=== PATIENT | male | born 1960 | race Caucasian/White ===

== ENCOUNTER 2019-10-05 16:01 | Emergency (ER) | payer SELFPAY ==
[~2019-10-05 16:01] MED LIST: Iopamidol-370 76% 500 ML 1 ML ONE
[2019-10-05] MEDS ORDERED: Ondansetron PF 4 MG/2 ML Vial ONE (16:16)
[2019-10-05] MEDS ORDERED: Ketorolac Tromethamine 30 MG/ML VIAL ONE (16:16)
[2019-10-05] MEDS ORDERED: Fentanyl 100 MCG/2 ML VIAL ONE (16:27)
[2019-10-05 16:45] LABS: #Basophils 0.1 thou/uL (0.0-0.2); #Eosinphils 0.3 thou/uL (0.0-0.7); #Lymphocytes 2.6 thou/uL (1.20-3.40); #Monocytes 0.7 thou/uL (0.11-0.59); #Neutrophils 3.5 thou/uL (1.40-6.50); %Basophils 1.1 % (0.0-1.0); %Eosinophils 3.6 % (0.0-10.0); %Lymphocytes 36.3 % (21.0-51.0); %Monocytes 9.4 % (0.0-10.0); %Neutrophils 49.7 % (42.0-75.0); Hemoglobin 13.2 g/dL (14.0-18.0); Mean Corpuscular HGB CONC 31.9 g/dL (32.0-36.0); Mean Corpuscular Hemoglobin 32.1 pg (27.0-31.0); Mean Platelet Volume 7.4 fL (7.4-10.4); Platelet Count 324 thou/uL (130-400); RBC Distribution Width 12.3 % (11.5-14.5); Red Blood Cell (RBC) Count 4.13 mill/uL (4.70-6.10); White Blood Cell (WBC) Count 7.1 thou/uL (4.8-10.8)
--- NOTE | 2019-10-05 17:01 | CT ---
CT OF THE ABDOMEN AND PELVIS WITH IV CONTRAST INDICATION: Concern for incarcerated inguinal hernia COMPARISON: None FINDINGS: ABDOMEN: Lung bases: Clear Liver: There is prominent heterogeneity of the liver which is nonspecific. There is [id number] intrahepatic biliary ductal dilatation which may be related to patient's postcholecystectomy state. There is a 6.6 mm hypodensity within segment 2 of the left hepatic lobe on image 11 of series 2. Stefano tional smaller 5 mm hypodensity is seen within segment 7 of the right hepatic lobe on image 22 of series 2. Gallbladder: Surgically absent Pancreas: There is mild prominence of the main pancreatic duct without focal pancreatic lesion. Adrenal glands: Normal. Spleen: There are multiple small splenules within the left upper quadrant abdomen. Kidneys and ureters: There is a 3.9 cm cyst involving the right mid kidney. Vasculature: There are mild vascular calcifications seen involving the visualized vasculature. Lymph nodes:No lymphadenopathy. Free fluid in abdomen:No free fluid is evident. PELVIS: Small and large bowel: There are loops of distal ileum within a large right inguinal hernia that exte nds into there is right hemiscrotum without evidence of small bowel obstruction. There is a mild amount of retained stool within the colon. Appendix:Normal Bladder: Normal. Rectal and perirectal soft tissues:Normal. Reproductive structures: Prostate is mildly enlarged measuring 4.5 cm Free fluid in pelvis: No free fluid is evident. Lymphadenopathy pelvis: There are mildly prominent inguinal lymph nodes bilaterally. The largest is s een within the right inguinal region measuring 9 mm. Osseous structures: No acute osseous abnormality. No destructive osteolytic or osteoblastic lesion i s identified. There is scattered degenerative and osteoarthritic changes. Soft tissues:Normal. IMPRESSION: 1. Large right sided inguinal hernia containing unobstructed loops of small bowel. 2. Nonspecific mildly prominent bilateral inguinal lymph nodes. 3. Prominent heterogeneity of the liver may reflect underlying chronic liver disease. There are small hypodensities within the liver that cannot be fully characterize due to their size. Follow-up nonemergent CT the abdomen utilizing a hepatic mass protocol is recommended. 4. Right renal cysts 5. Multiple splenules within the left upper quadrant of the abdomen. 6. Prostate enlargement
[2019-10-05 17:11] LABS: ALT (SGPT) Less than 7 U/L (8-55); AST (SGOT) 16 U/L (5-34); Albumin 3.5 g/dL (3.5-5.0); Alkaline Phosphatase 95 U/L (40-110); Anion Gap 8 mmol/L (10-20); BUN (Urea Nitrogen) 10 mg/dL (8.4-25.7); Bilirubin, Total 0.4 mg/dL (0.2-1.2); Calc. Creatinine Clearance 0 mL/min (70-130); Calcium 7.7 mg/dL (7.8-10.44); Carbon Dioxide 28 mmol/L (22-29); Chloride 105 mmol/L (98-107); Estimated GFR-MDRD Greater than 90; Globulin 2.7 g/dL (2.4-3.5); Glucose 91 mg/dL (70-105); Potassium 3.9 mmol/L (3.5-5.1); Protein, Total 6.2 g/dL (6.0-8.3); Sodium 137 mmol/L (136-145)
[2019-10-05 17:32] LABS: Bilirubin Negative (Negative); Blood, Urine Negative (Negative); Clarity Clear (Clear); Glucose, Urine (Dipstick) Normal (Negative); Leukocyte Negative Leu/uL (Negative); Nitrite Negative (Negative); Protein, Urine (Dipstick) Negative (Neg-Trace); Urobilinogen Normal mg/dL (Less than 2)
== END 2019-10-05 18:10 | disposition home or self-care (01) ==
LOC: ERS 16:01
DX: K40.90 Unilateral inguinal hernia, without obstruction or gangrene, not specified as recurrent (principal); I10 Essential (primary) hypertension; F31.9 Bipolar disorder, unspecified; F17.210 Nicotine dependence, cigarettes, uncomplicated
CPT/HCPCS: 36415; 74177; 81003; 96374; 96375; J1885; J2405; J3010; Q9967

== ENCOUNTER 2020-01-22 06:03 | Day surgery (SDC) | payer OTHER ==
[2020-01-20 15:36] VITALS: BMI 24.2
[2020-01-22] MEDS ORDERED: Bupivacaine/Epinephrine 0.25% 30 ML VIAL ONE (06:39)
[2020-01-22] MEDS ORDERED: Ketorolac Tromethamine 30 MG/ML VIAL ONE (06:50)
[2020-01-22] MEDS ORDERED: Levofloxacin 500 mg/D5W 100 ml Premix Bag ONE (06:50)
[2020-01-22] MEDS ORDERED: Acetaminophen 500 MG TAB ONE (06:50)
[2020-01-22] MEDS ORDERED: SUGAMMADEX SODIUM 200 MG/2 ML VIAL ONE (07:22)
[2020-01-22] MEDS ORDERED: Fentanyl 100 MCG/2 ML VIAL ONE (07:22)
[2020-01-22] MEDS ORDERED: Midazolam HCl 2 mg/2 ml Vial ONE (07:47)
[2020-01-22] MEDS ORDERED: Ondansetron HCl/PF 4 MG/2 ML Vial IVP PRN (08:28)
[2020-01-22] MEDS ORDERED: Promethazine HCl 25 MG/ML VIAL SLOW IVP PRN (08:28)
[2020-01-22] MEDS ORDERED: Promethazine HCl 25 MG/ML VIAL IM PRN (08:28)
[2020-01-22] MEDS ORDERED: Meperidine HCl/PF 25 MG/ML VIAL SLOW IVP PRN (08:28)
[2020-01-22] MEDS ORDERED: Morphine Sulfate 2 MG/ML SYRINGE SLOW IVP PRN (08:28)
[2020-01-22] MEDS ORDERED: Bupivacaine PF 0.5% 30 ML VIAL ONE (08:32)
[2020-01-22] MEDS ORDERED: PROPOFOL 200 MG/20 ML VIAL ONE (08:54)
[2020-01-22] MEDS ORDERED: Lidocaine 1% PF 5 ML VIAL ONE (08:54)
[2020-01-22] MEDS ORDERED: Ondansetron PF 4 MG/2 ML Vial ONE (08:54)
--- NOTE | 2020-01-22 14:09 | PDOC.OP ---
Operative Note - Operative Note Operative Note: DATE OF SERVICE: 01/22/2020 PREOPERATIVE DIAGNOSIS: Right inguinal hernia. POSTOPERATIVE DIAGNOSIS: Right indirect inguinal hernia. PROCEDURE: Repair of right indirect inguinal hernia. HISTORY: 59-year-old man with a symptomatic large but reducible right inguinal hernia who desires operative repair. DESCRIPTION OF PROCEDURE: After informed consent was obtained and appropriate preoperative antibiotics were administered, the patient was taken to the operating room, placed in the supine position and general endotracheal anesthesia was administered. The inguinal area was prepped and draped in the standard sterile fashion and local anesthesia was infused to the skin and subcutaneous tissues overlying the inguinal canal. An oblique skin incision was made in the direction of the skin crease. Dissection was carried down to the external oblique aponeurosis which was carefully incised in the direction of its fibers through the enlarged external ring. The aponeurosis was mobilized off the underlying structures. The ilioinguinal nerve was clearly identified. This was coursing medial to the course of the inguinal cord and was mobilized out of the operative field and carefully avoided for the remainder of the case. The inguinal cord was mobilized at the level of the pubic tubercle. The cremasteric muscles were divided and the cord contents and floor of the canal were carefully examined. An indirect hernia was identified. The hernia sac was dissected free of the cord contents down to the level of the peritoneal reflection. The hernia sac was opened and was empty. The base of the hernia sac was encircled with a pursestring 3-0 Vicryl suture. The pursestring suture was secured and the hernia sac was resected. The base of the hernia sac was tied to the base of the Perfix plug. The Perfix plug was then placed into the internal ring and was tacked down to the internal oblique in a couple of locations. The patch was then secured to the pubic tubercle inferiorly, to the shelving edge of the inguinal ligament laterally, and secured at intervals to the internal oblique medially. A keyhole slit was created and placed around the inguinal cord contents and secured, and the ends secured to each other and to the underlying p lug. The operative site was irrigated and hemostasis verified. Local anesthesia was infused into the muscles of the internal oblique medially. An On-Q pain pump was obtained and tunneled from the operative site to the skin exiting laterally. The tubing was primed and placed into the inguinal canal. The external oblique aponeurosis was then closed with 2-0 Vicryl suture, taking care not to pull up any of the underlying cord contents into the closure, and additional local anesthesia infused into the inguinal canal. The remainder of the local was infused into the subcutaneous tissues circumferentially and to the skin. Alley's fascia was reapproximated with 3-0 Monocryl sutures and the skin was closed with 4-0 subcuticular Monocryl sutures. Dermabond dressings were placed and the On-Q pain pump tubing dressed with Tegaderm. The patient was extubated and taken to the recovery room in good condition. Estimated blood loss was minimal. There were no complications. SPECIMENS: Right inguinal hernia sac.
== END 2020-01-22 12:10 | disposition home or self-care (01) ==
LOC: SDC 06:03
PROVIDERS: ATTEND Surgery
PROC: 0YQ50ZZ Repair Right Inguinal Region, Open Approach (ICD-10-PCS; principal; 2020-01-22)
DX: K40.90 Unilateral inguinal hernia, without obstruction or gangrene, not specified as recurrent (principal); I48.91 Unspecified atrial fibrillation; F31.9 Bipolar disorder, unspecified; F17.200 Nicotine dependence, unspecified, uncomplicated; Z88.0 Allergy status to penicillin
CPT/HCPCS: 88302; A4306; C1781; J1885; J1956; J2250; J2405; J2704; J3010; S0020

== ENCOUNTER 2020-07-31 22:07 | Inpatient (IN) | payer SELFPAY ==
[2020-08-01 00:19] VITALS: BMI 24.9
[2020-08-01] MEDS ORDERED: Ondansetron PF 4 MG/2 ML Vial IVP PRN (00:26)
[2020-08-01] MEDS ORDERED: Acetaminophen 325 MG TAB PO PRN (00:26)
[2020-08-01] MEDS ORDERED: Guaifenesin DM 100-10/5 ML UDCUP PO PRN (00:26)
[2020-08-01] MEDS ORDERED: Sodium Chloride 0.9% 1,000 ML IV SCH (00:45)
[2020-08-01] MEDS: Temazepam 15 MG CAP PO PRN (00:58)
[2020-08-01] MEDS: Nicotine 14 MG PATCH TD SCH (01:06)
[2020-08-01 05:20] LABS: #Basophils 0.1 thou/uL (0.0-0.2); #Eosinphils 0.1 thou/uL (0.0-0.7); #Lymphocytes 2.8 thou/uL (1.20-3.40); #Monocytes 0.7 thou/uL (0.11-0.59); #Neutrophils 4.4 thou/uL (1.40-6.50); %Basophils 1.4 % (0.0-1.0); %Eosinophils 1.7 % (0.0-10.0); %Lymphocytes 33.7 % (21.0-51.0); %Monocytes 8.9 % (0.0-10.0); %Neutrophils 54.2 % (42.0-75.0); Hemoglobin 13.7 g/dL (14.0-18.0); Mean Corpuscular HGB CONC 33.1 g/dL (32.0-36.0); Mean Platelet Volume 8.4 fL (7.4-10.4); Platelet Count 302 thou/uL (130-400); RBC Distribution Width 12.5 % (11.5-14.5); Red Blood Cell (RBC) Count 4.03 mill/uL (4.70-6.10); White Blood Cell (WBC) Count 8.2 thou/uL (4.8-10.8)
[2020-08-01 05:48] LABS: Troponin I 0.033 ng/mL (< 0.028)
[2020-08-01 05:49] LABS: ALT (SGPT) 51 U/L (8-55); AST (SGOT) 50 U/L (5-34); Albumin 3.1 g/dL (3.5-5.0); Alkaline Phosphatase 113 U/L (40-110); Anion Gap 13 mmol/L (10-20); BUN (Urea Nitrogen) 9 mg/dL (8.4-25.7); Bilirubin, Total 1.7 mg/dL (0.2-1.2); Calc. Creatinine Clearance 112 mL/min (70-130); Calcium 7.6 mg/dL (7.8-10.44); Carbon Dioxide 22 mmol/L (22-29); Chloride 107 mmol/L (98-107); Cholesterol 96 mg/dl (< 200 Desired); Globulin 2.9 g/dL (2.4-3.5); Glucose 102 mg/dL (70-105); HDL Cholesterol 32 mg/dL (>60 Neg Risk); LDL Cholesterol, Calculated 52 mg/dL; Potassium 4.6 mmol/L (3.5-5.1); Sodium 137 mmol/L (136-145); Triglycerides 59 mg/dL (Less than 150)
[2020-08-01 08:41] LABS: SARS-CoV-2 PCR by NAA Not Detected (NotDetected)
[2020-08-01] MEDS ORDERED: Aspirin 325 MG TAB PO SCH (08:45)
[2020-08-01] MEDS: Diltiazem 125 MG in Sodium Chloride 0.9% 100 ML IVPB SCH ×2 (09:28→19:38)
[2020-08-01 10:44] LABS: HBCM Index 0.06 S/CO (0-0.79); HBSAg Index 0.16 S/CO (0-0.99); Hep A IgM AB Non-Reactive (NonReactive); Hep A IgM S/CO 0.11 S/CO (0-0.79); Hep B Surf Ag Non-Reactive S/CO (NonReactive); Hep C IgG Ab Non-Reactive (NonReactive); Hep C Index 0.07 S/CO (0-0.79); Hepatitis B Core IgM Abs Non-Reactive (NonReactive); Thyroid Stimulating Hormone 1.8594 uIU/mL (0.35-4.94)
[2020-08-01] MEDS ORDERED: Furosemide 40 MG/4 ML VIAL SLOW IVP SCH (12:00)
[2020-08-01] MEDS: Senokot S 8.6-50 MG TAB PO SCH ×2 (12:21→22:25)
[2020-08-01] MEDS: Famotidine 20 MG TAB PO SCH ×2 (12:21→22:25)
[2020-08-01] MEDS: Polyethylene Glycol 3350 17 GM Packet PO SCH (12:22)
[2020-08-01] MEDS: Enoxaparin Sodium 80 MG/0.8 ML SYRINGE SC SCH ×2 (12:22→22:25)
[2020-08-01] MEDS ORDERED: Furosemide 40 MG TAB PO SCH (14:00)
[2020-08-01] MEDS: Diltiazem HCl SR 60 mg Capsule PO SCH ×2 (15:49→22:26)
[2020-08-01] MEDS: Furosemide 40 MG/4 ML VIAL SLOW IVP SCH (15:49)
[2020-08-01] MEDS: Digoxin 0.25 MG TAB PO SCH ×2 (15:49→22:24)
[2020-08-01] MEDS ORDERED: Communication Order-Pharmacy FS SCH (17:45)
[2020-08-02] MEDS: Nicotine 14 MG PATCH TD SCH (01:28)
[2020-08-02] MEDS: Temazepam 15 MG CAP PO PRN (01:30)
[2020-08-02] MEDS: Digoxin 0.25 MG TAB PO SCH ×2 (04:00→10:47)
[2020-08-02] MEDS: Sodium Chloride 0.9% 1,000 ML IV SCH ×3 (05:05→17:15)
[2020-08-02] MEDS: Diltiazem HCl SR 60 mg Capsule PO SCH ×3 (05:12→21:13)
[2020-08-02] MEDS ORDERED: Iopamidol 370 76% 100 ML VIAL ONE (08:43)
[2020-08-02] MEDS: Diltiazem 125 MG in Sodium Chloride 0.9% 100 ML IVPB SCH (09:20)
[2020-08-02] MEDS ORDERED: Fleet Enema 133 ML BOT PR SCH (09:30)
[2020-08-02] MEDS ORDERED: Carvedilol 6.25 MG TAB PO SCH ×2 (10:00→21:00)
[2020-08-02] MEDS ORDERED: Nitroglycerin 100MG/250ML BOT 250 ML ONE (11:39)
[2020-08-02] MEDS ORDERED: Verapamil 5 MG/2 ML VIAL ONE (11:39)
[2020-08-02] MEDS ORDERED: Adenosine 6 MG/2 ML VIAL ONE (11:39)
[2020-08-02] MEDS ORDERED: Heparin 10,000 UNITS/ 10 ML VIAL ONE (11:46)
[2020-08-02] MEDS ORDERED: Fentanyl 100 MCG/2 ML VIAL ONE (12:42)
[2020-08-02] MEDS ORDERED: Midazolam HCl 2 mg/2 ml Vial ONE (12:42)
[2020-08-02] MEDS: Furosemide 40 MG/4 ML VIAL SLOW IVP SCH ×2 (13:48→14:37)
[2020-08-02] MEDS: Famotidine 20 MG TAB PO SCH ×2 (13:49→21:13)
[2020-08-02] MEDS: Senokot S 8.6-50 MG TAB PO SCH ×2 (13:49→21:13)
[2020-08-02] MEDS: Polyethylene Glycol 3350 17 GM Packet PO SCH (14:37)
[2020-08-03] MEDS: Sodium Chloride 0.9% 1,000 ML IV SCH ×3 (00:57→23:35)
[2020-08-03 05:27] LABS: #Basophils 0.1 thou/uL (0.0-0.2); #Eosinphils 0.3 thou/uL (0.0-0.7); #Lymphocytes 1.7 thou/uL (1.20-3.40); #Monocytes 0.7 thou/uL (0.11-0.59); #Neutrophils 4.7 thou/uL (1.40-6.50); %Basophils 1.5 % (0.0-1.0); %Eosinophils 3.5 % (0.0-10.0); %Lymphocytes 22.4 % (21.0-51.0); %Monocytes 9.7 % (0.0-10.0); %Neutrophils 62.9 % (42.0-75.0); Hemoglobin 15.6 g/dL (14.0-18.0); Mean Corpuscular HGB CONC 34.5 g/dL (32.0-36.0); Mean Platelet Volume 6.4 fL (7.4-10.4); Platelet Count 328 thou/uL (130-400); RBC Distribution Width 12.4 % (11.5-14.5); Red Blood Cell (RBC) Count 4.45 mill/uL (4.70-6.10); White Blood Cell (WBC) Count 7.4 thou/uL (4.8-10.8)
[2020-08-03 05:30] LABS: Anion Gap 12 mmol/L (10-20); BUN (Urea Nitrogen) 8 mg/dL (8.4-25.7); Calc. Creatinine Clearance 138 mL/min (70-130); Calcium 8.2 mg/dL (7.8-10.44); Carbon Dioxide 24 mmol/L (22-29); Chloride 106 mmol/L (98-107); Glucose 90 mg/dL (70-105); Potassium 4.1 mmol/L (3.5-5.1); Sodium 138 mmol/L (136-145)
[2020-08-03] MEDS: Diltiazem HCl SR 60 mg Capsule PO SCH (05:43)
[2020-08-03] MEDS: Furosemide 40 MG/4 ML VIAL SLOW IVP SCH ×2 (05:43→15:19)
[2020-08-03] MEDS: Nicotine 14 MG PATCH TD SCH (05:43)
[2020-08-03] MEDS ORDERED: Bisacodyl 10 MG SUPP PR PRN (09:49)
[2020-08-03] MEDS: Famotidine 20 MG TAB PO SCH ×2 (09:57→21:30)
[2020-08-03] MEDS: Enoxaparin Sodium 80 MG/0.8 ML SYRINGE SC SCH ×2 (09:57→21:30)
[2020-08-03] MEDS: Senokot S 8.6-50 MG TAB PO SCH ×2 (09:57→21:30)
[2020-08-03] MEDS: Carvedilol 6.25 MG TAB PO SCH ×2 (09:57→21:30)
[2020-08-03] MEDS: Polyethylene Glycol 3350 17 GM Packet PO SCH (09:57)
[2020-08-03] MEDS: Lisinopril 5 MG TAB PO SCH (09:58)
[2020-08-03] MEDS: Diltiazem 125 MG in Sodium Chloride 0.9% 100 ML IVPB SCH (10:49)
[2020-08-03] MEDS: Temazepam 15 MG CAP PO PRN (21:31)
[2020-08-04] MEDS: Nicotine 14 MG PATCH TD SCH (04:22)
[2020-08-04] MEDS: Sodium Chloride 0.9% 1,000 ML IV SCH (05:40)
[2020-08-04] MEDS: Furosemide 40 MG/4 ML VIAL SLOW IVP SCH ×2 (05:40→15:26)
[2020-08-04] MEDS ORDERED: Diltiazem 125 MG in Sodium Chloride 0.9% 100 ML IVPB SCH (07:19)
[2020-08-04 08:44] VITALS: TEMP 97.8
[2020-08-04] MEDS: Lisinopril 5 MG TAB PO SCH (08:50)
[2020-08-04] MEDS: Famotidine 20 MG TAB PO SCH (08:50)
[2020-08-04] MEDS: Senokot S 8.6-50 MG TAB PO SCH (08:50)
[2020-08-04] MEDS: Polyethylene Glycol 3350 17 GM Packet PO SCH (08:51)
[2020-08-04] MEDS: Carvedilol 6.25 MG TAB PO SCH ×2 (08:51→15:27)
[2020-08-04] MEDS ORDERED: Rivaroxaban 10 MG TAB PO SCH (09:00)
[2020-08-04 12:36] VITALS: BP 136/99
== END 2020-08-04 15:25 | disposition home or self-care (01) | DRG 286 ==
LOC: OBSVTOIN 23:58 → 2SW 23:58 → 2NO 08-01 21:08
PROVIDERS: ADMIT Student in an Organized Health Care Education/Training Program; ATTEND Internal Medicine
PROC: 4A023N7 Measurement of Cardiac Sampling and Pressure, Left Heart, Percutaneous Approach (ICD-10-PCS; principal; 2020-07-31)
PROC: B2151ZZ Fluoroscopy of Left Heart using Low Osmolar Contrast (ICD-10-PCS; 2020-07-31)
PROC: B2111ZZ Fluoroscopy of Multiple Coronary Arteries using Low Osmolar Contrast (ICD-10-PCS; 2020-07-31)
DX: I48.91 Unspecified atrial fibrillation (principal); I50.21 Acute systolic (congestive) heart failure; K59.00 Constipation, unspecified; I42.8 Other cardiomyopathies; F17.200 Nicotine dependence, unspecified, uncomplicated; I25.10 Atherosclerotic heart disease of native coronary artery without angina pectoris; Z88.0 Allergy status to penicillin; Z90.49 Acquired absence of other specified parts of digestive tract
CPT/HCPCS: 36415; 80048; 80053; 80061; 80074; 82553; 83735; 83880; 84443; 85025; 87635; 93306; 93458; 93798; 93975; 96365; 96366; 99152; G0378; J0153; J1644; J1650; J1940; J2250; J3010; J3490; Q9967; U0003; U0005

== ENCOUNTER 2020-09-06 04:56 | Inpatient (IN) | payer SELFPAY ==
[2020-09-06] MEDS ORDERED: Diltiazem 125 MG/25 ML ONE (06:24)
[2020-09-06 06:31] LABS: Troponin I Less than 0.010 ng/mL (< 0.028)
[2020-09-06] MEDS ORDERED: Ondansetron PF 4 MG/2 ML Vial IVP PRN (08:29)
[2020-09-06] MEDS ORDERED: Acetaminophen 325 MG TAB PO PRN (08:29)
[2020-09-06] MEDS ORDERED: Diltiazem 125 MG in Sodium Chloride 0.9% 100 ML IVPB SCH (08:45)
[2020-09-06] MEDS ORDERED: Rivaroxaban 10 MG TAB PO SCH (09:00)
[2020-09-06 09:06] LABS: Troponin I 0.015 ng/mL (< 0.028)
[2020-09-06] MEDS ORDERED: Famotidine 20 MG TAB ONE (10:18)
[2020-09-06] MEDS: Carvedilol 6.25 MG TAB PO SCH ×3 (10:33→20:31)
[2020-09-06] MEDS: Famotidine 20 MG TAB PO SCH ×2 (10:34→20:31)
[2020-09-06] MEDS: Lisinopril 2.5 MG TAB PO SCH (10:34)
[2020-09-06] MEDS: Nicotine 14 MG PATCH TD SCH (10:35)
[2020-09-06 13:40] LABS: SARS-CoV-2 PCR by NAA Not Detected (NotDetected)
[2020-09-06 16:33] VITALS: BMI 24.0
[2020-09-06] MEDS: Digoxin 0.5 MG/2 ML AMP SLOW IVP SCH (17:23)
[2020-09-06] MEDS: Melatonin 3 MG TAB PO PRN (22:21)
[2020-09-07] MEDS: Digoxin 0.5 MG/2 ML AMP SLOW IVP SCH ×3 (02:46→11:50)
[2020-09-07 04:50] LABS: #Basophils 0.1 thou/uL (0.0-0.2); #Eosinphils 0.4 thou/uL (0.0-0.7); #Lymphocytes 2.4 thou/uL (1.20-3.40); #Monocytes 0.7 thou/uL (0.11-0.59); #Neutrophils 4.7 thou/uL (1.40-6.50); %Basophils 1.5 % (0.0-1.0); %Eosinophils 5.2 % (0.0-10.0); %Lymphocytes 28.6 % (21.0-51.0); %Monocytes 8.4 % (0.0-10.0); %Neutrophils 56.3 % (42.0-75.0); Hemoglobin 14.1 g/dL (14.0-18.0); Mean Corpuscular Hemoglobin 33.1 pg (27.0-31.0); Mean Platelet Volume 9.1 fL (7.4-10.4); Platelet Count 228 thou/uL (130-400); RBC Distribution Width 12.8 % (11.5-14.5); Red Blood Cell (RBC) Count 4.26 mill/uL (4.70-6.10); White Blood Cell (WBC) Count 8.4 thou/uL (4.8-10.8)
[2020-09-07 07:46] LABS: Anion Gap 11 mmol/L (10-20); BUN (Urea Nitrogen) 15 mg/dL (8.4-25.7); Calc. Creatinine Clearance 110 mL/min (70-130); Calcium 8.2 mg/dL (7.8-10.44); Carbon Dioxide 23 mmol/L (22-29); Chloride 108 mmol/L (98-107); Glucose 95 mg/dL (70-105); Potassium 3.8 mmol/L (3.5-5.1); Sodium 138 mmol/L (136-145)
[2020-09-07] MEDS: Lisinopril 2.5 MG TAB PO SCH (08:45)
[2020-09-07] MEDS: Famotidine 20 MG TAB PO SCH ×2 (08:45→21:37)
[2020-09-07] MEDS: Carvedilol 25 MG TAB PO SCH ×2 (08:46→21:37)
[2020-09-07] MEDS: Nicotine 14 MG PATCH TD SCH ×2 (08:46→13:51)
[2020-09-07] MEDS: Rivaroxaban 10 MG TAB PO SCH (08:46)
[2020-09-07 08:47] LABS: ALT (SGPT) 57 U/L (8-55); AST (SGOT) 27 U/L (5-34); Albumin 3.3 g/dL (3.5-5.0); Alkaline Phosphatase 105 U/L (40-110); Bilirubin, Direct 0.5 mg/dL (0.1-0.3); Bilirubin, Total 2.7 mg/dL (0.2-1.2); Protein, Total 5.9 g/dL (6.0-8.3)
[2020-09-07] MEDS: Melatonin 3 MG TAB PO PRN (21:37)
[2020-09-08 04:52] LABS: #Basophils 0.1 thou/uL (0.0-0.2); #Eosinphils 0.5 thou/uL (0.0-0.7); #Lymphocytes 2.5 thou/uL (1.20-3.40); #Monocytes 0.9 thou/uL (0.11-0.59); #Neutrophils 4.2 thou/uL (1.40-6.50); %Basophils 1.1 % (0.0-1.0); %Eosinophils 5.8 % (0.0-10.0); %Lymphocytes 30.8 % (21.0-51.0); %Monocytes 10.6 % (0.0-10.0); %Neutrophils 51.7 % (42.0-75.0); Hemoglobin 14.7 g/dL (14.0-18.0); Mean Corpuscular HGB CONC 32.1 g/dL (32.0-36.0); Mean Corpuscular Hemoglobin 32.4 pg (27.0-31.0); Mean Platelet Volume 8.5 fL (7.4-10.4); Platelet Count 250 thou/uL (130-400); RBC Distribution Width 12.6 % (11.5-14.5); Red Blood Cell (RBC) Count 4.55 mill/uL (4.70-6.10); White Blood Cell (WBC) Count 8.2 thou/uL (4.8-10.8)
[2020-09-08 05:11] LABS: Anion Gap 12 mmol/L (10-20); BUN (Urea Nitrogen) 12 mg/dL (8.4-25.7); Calc. Creatinine Clearance 110 mL/min (70-130); Calcium 8.1 mg/dL (7.8-10.44); Carbon Dioxide 22 mmol/L (22-29); Chloride 108 mmol/L (98-107); Glucose 92 mg/dL (70-105); Potassium 3.9 mmol/L (3.5-5.1); Sodium 138 mmol/L (136-145)
[2020-09-08] MEDS ORDERED: Furosemide 40 MG TAB PO SCH (08:30)
[2020-09-08 08:36] LABS: Anion Gap 13 mmol/L (10-20); BUN (Urea Nitrogen) 11 mg/dL (8.4-25.7); Calc. Creatinine Clearance 102 mL/min (70-130); Calcium 8.5 mg/dL (7.8-10.44); Carbon Dioxide 25 mmol/L (22-29); Chloride 104 mmol/L (98-107); Glucose 120 mg/dL (70-105); Magnesium 2.1 mg/dL (1.6-2.6); Sodium 138 mmol/L (136-145)
[2020-09-08 08:37] LABS: Hemoglobin 14.7 g/dL (14.0-18.0); Mean Corpuscular HGB CONC 29.2 g/dL (32.0-36.0); Mean Corpuscular Hemoglobin 29.6 pg (27.0-31.0); Mean Platelet Volume 8.8 fL (7.4-10.4); Platelet Count 267 thou/uL (130-400); RBC Distribution Width 12.8 % (11.5-14.5); Red Blood Cell (RBC) Count 4.97 mill/uL (4.70-6.10); White Blood Cell (WBC) Count 7.1 thou/uL (4.8-10.8)
[2020-09-08 08:38] LABS: #Basophils 0.1 thou/uL (0.0-0.2); #Eosinphils 0.4 thou/uL (0.0-0.7); #Lymphocytes 2.3 thou/uL (1.20-3.40); #Monocytes 0.5 thou/uL (0.11-0.59); #Neutrophils 3.8 thou/uL (1.40-6.50); %Basophils 1.2 % (0.0-1.0); %Eosinophils 5.9 % (0.0-10.0); %Lymphocytes 32.2 % (21.0-51.0); %Monocytes 7.1 % (0.0-10.0); %Neutrophils 53.6 % (42.0-75.0)
[2020-09-08] MEDS: Carvedilol 25 MG TAB PO SCH (08:51)
[2020-09-08] MEDS: Famotidine 20 MG TAB PO SCH (08:51)
[2020-09-08] MEDS: Lisinopril 2.5 MG TAB PO SCH (08:51)
[2020-09-08] MEDS: Rivaroxaban 10 MG TAB PO SCH (08:51)
[2020-09-08] MEDS: Nicotine 14 MG PATCH TD SCH (08:51)
[2020-09-08] MEDS ORDERED: Potassium Citrate 10 MEQ TAB PO SCH (09:00)
[2020-09-08 12:20] VITALS: BP 142/104; TEMP 97.6
[2020-09-09] MEDS ORDERED: Furosemide 40 MG TAB PO SCH (07:30)
== END 2020-09-08 12:15 | disposition home or self-care (01) | DRG 308 ==
LOC: ERS 04:56 → ERHOLD 05:58 → 2NO 14:52
PROVIDERS: ADMIT Internal Medicine; ATTEND Internal Medicine
DX: I48.91 Unspecified atrial fibrillation (principal); I50.23 Acute on chronic systolic (congestive) heart failure; Z20.822 Contact with and (suspected) exposure to COVID-19; I11.0 Hypertensive heart disease with heart failure; F31.9 Bipolar disorder, unspecified; F12.10 Cannabis abuse, uncomplicated; F17.210 Nicotine dependence, cigarettes, uncomplicated; I25.10 Atherosclerotic heart disease of native coronary artery without angina pectoris; R94.5 Abnormal results of liver function studies; I42.8 Other cardiomyopathies; K76.1 Chronic passive congestion of liver; Z88.0 Allergy status to penicillin; Z79.899 Other long term (current) drug therapy; Z79.01 Long term (current) use of anticoagulants; Z90.49 Acquired absence of other specified parts of digestive tract
CPT/HCPCS: 36415; 80048; 80076; 83735; 85025; 87635; 96365; 96366; J1160; U0003; U0005